=== PATIENT | male | born 1970 | race African-American/Black ===

== ENCOUNTER 2020-06-11 12:31 | Emergency (ER) | payer BC ==
--- NOTE | 2020-06-11 13:40 | EDM.PDOC ---
ED HPI GENERAL MEDICAL PROBLEM - General Chief Complaint: Respiratory Problem Stated Complaint: SINUS PRESSURE/BODY ACHES Time Seen by Provider: 06/11/20 12:37 Source of Information: Reports: Patient, RN Notes Reviewed History Limitations: Reports: No Limitations - History of Present Illness INITIAL COMMENTS - FREE TEXT/NARRATIVE: Patient is a 49-year-old male presenting to the emergency department with complaints of a 3-day history of sinus pressure with headaches, generalized body aches, and a sore throat. He states his symptoms began Tuesday. His sore throat has since resolved, however he still continues to have sinus pressure with some mild congestion as well as generalized body aches. He denies any cough or shortness of breath. Has had no nausea vomiting or diarrhea. Denies any known fevers. He is concerned that he could have Covid and does not want to expose his coworkers to this. He denies any chronic medical conditions. Face/Facial Pain Score (Numeric/FACES): 5 - Related Data Allergies Allergy/AdvReac Type Severity Reaction Status Date / Time No Known Allergies Allergy Verified 05/11/20 23:28 Home Meds: Home Meds Meloxicam 15 mg PO ASDIRECTED 05/11/20 [History] Rosuvastatin [Crestor] 10 mg PO DAILY #30 tab 05/13/20 [Rx] lisinopriL [Lisinopril] 5 mg PO DAILY #30 tablet 05/13/20 [Rx] Dulaglutide [Trulicity] 1 injection INJECT SA 06/11/20 [History] Past Medical History - Past Health History Medical/Surgical History: Denies Medical/Surgical History HEENT History: Reports: None Cardiovascular History: Reports: None Respiratory History: Reports: None Gastrointestinal History: Reports: None Genitourinary History: Reports: None Musculoskeletal History: Reports: None Neurological History: Reports: None Psychiatric History: Reports: None Endocrine/Metabolic History: Reports: Diabetes, Type II Hematologic History: Reports: None Immunologic History: Reports: None Dermatologic History: Reports: None - Infectious Disease History Infectious Disease History: Reports: None Social & Family History - Family History Family Medical History: No Pertinent Family History Endocrine/Metabolic: Reports: Diabetes, type II - Tobacco Use Tobacco Use Status *Q: Never Tobacco User - Caffeine Use Caffeine Use: Reports: Coffee - Recreational Drug Use Recreational Drug Use: No ED ROS GENERAL - Review of Systems Review Of Systems: See Below Constitutional: Reports: No Symptoms. Denies: Fever, Chills, Decreased Appetite HEENT: Reports: Sinus Problem, Throat Pain Respiratory: Reports: No Symptoms. Denies: Shortness of Breath, Cough Cardiovascular: Reports: No Symptoms Endocrine: Reports: No Symptoms GI/Abdominal: Reports: No Symptoms : Reports: No Symptoms Musculoskeletal: Reports: Other (Generalized body aches) Skin: Reports: No Symptoms Neurological: Reports: Headache Psychiatric: Reports: No Symptoms Hematologic/Lymphatic: Reports: No Symptoms Immunologic: Reports: No Symptoms ED EXAM, GENERAL - Physical Exam Exam: See Below Exam Limited By: No Limitations General Appearance: Alert, WD/WN, No Apparent Distress Respiratory/Chest: No Respiratory Distress, Lungs Clear, Normal Breath Sounds, No Accessory Muscle Use, Chest Non-Tender Cardiovascular: Normal Peripheral Pulses, Regular Rate, Rhythm, No Edema, No Gallop, No JVD, No Murmur, No Rub GI/Abdominal: Normal Bowel Sounds, Soft, Non-Tender, No Organomegaly, No Distention, No Abnormal Bruit, No Mass Neurological: Alert, Oriented, CN II-XII Intact, Normal Cognition, Normal Gait, Normal Reflexes, No Motor/Sensory Deficits Psychiatric: Normal Affect, Normal Mood Skin Exam: Warm, Dry, Intact, Normal Color, No Rash Course - Vital Signs Last Recorded V/S: Last Vital Signs Temp 97.9 F 06/11/20 13:48 Pulse 73 06/11/20 13:48 Resp 16 06/11/20 13:48 BP 130/78 06/11/20 13:48 Pulse Ox 97 06/11/20 13:48 - Orders/Labs/Meds Labs: Laboratory Tests 06/11/20 Range/Units 13:50 SARS-CoV-2 (PCR) Detected H (NOT DETECT) - Re-Assessments/Exams Free Text/Narrative Re-Assessment/Exam: Patient is a 49-year-old male presenting to the emergency department with complaints of generalized body aches, sinus pressure with headaches, and a sore throat which has since resolved. Symptoms began on Tuesday. He denies any fever, cough, shortness of breath, nausea, vomiting, or diarrhea. We will complete a state send out Covid test today. He will be provided a note off from work pending Covid results. 06/13/20 17:36 Patient notified of positive Covid test results. Advised of isolation and quarantine precautions. Departure - Departure Time of Disposition: 13:37 Disposition: Home, Self-Care 01 Condition: Good Clinical Impression: Viral illness - Discharge Information *PRESCRIPTION DRUG MONITORING PROGRAM REVIEWED*: No *COPY OF PRESCRIPTION DRUG MONITORING REPORT IN PATIENT ZUNILDA: No Instructions: Viral Illness, Adult Referrals: Hamlet Ventura MD [Primary Care Provider] - Forms: ED Department Discharge, ED Return to Work/School Form Additional Instructions: You were seen in the emergency department today for sinus pressure, generalized body aches, and a sore throat that resolved. On exam, her lung sounds are clear. Her vital signs were stable. A Covid test has been completed. You will be notified when results are available which is generally 24 to 72 hours. You must quarantine pending Covid results. A note has been provided off from work for you. Continue symptomatic treatment including Tylenol and ibuprofen as needed. Return to ER for new or worsening symptoms of concern. Sepsis Event Note (ED) - Evaluation Sepsis Screening Result: No Definite Risk
== END 2020-06-11 13:59 | disposition home or self-care (01) ==
LOC: JD.ED 12:31
DX: U07.1 COVID-19 (principal); E11.9 Type 2 diabetes mellitus without complications
CPT/HCPCS: 99282; 99283; U0002